=== PATIENT | female | born 1965 ===

== ENCOUNTER 2018-07-18 11:41 | Day surgery (SDC) | payer MEDICAID ==
--- NOTE | 2018-07-18 12:34 | CP.SDSHP ---
Same Day Surgery H & P - History Proposed Procedure: Right submandibular mass FNA - Allergies Allergies: Allergies No Known Allergies Allergy (Verified 08/27/15 12:25) - Physical Exam Mental Status: Alert & Oriented x3 Neuro: WNL Heart: WNL - Impression Impression: 2 cm complex Right submandibualar mass. Plan US guided FNA. Pt. Evaluated Today:Candidate for Anesthesia & Procedure: No Short Stay Discharge - Short Stay Discharge Admitting Diagnosis/Reason for Visit: LOCALIZED SWELLING, MASS AND LUMP, NECK Disposition: HOME/ ROUTINE Referrals: Braxton Edward MD [Primary Care Provider] -
--- NOTE | 2018-07-18 12:34 | PCM.SURG1 ---
Surgeon's Initial Post Op Note - Surgeon's Notes Surgeon: Guero Anguiano MD Accelerator Operator: NONE Type of Anesthesia: Local Pre-Operative Diagnosis: Right submandibualar mass Operative Findings: US showed a complex right submandibular mass. Post-Operative Diagnosis: Right submandibualar mass Operation Performed: US guided FNA Specimen/Specimens Removed: 25 g FNA x 3 passes, 2 cc of yellow fluis aspirated Estimated Blood Loss: EBL {In ML}: 0 Blood Products Given: N/A Drains Used: No Drains Post-Op Condition: Good Date of Surgery/Procedure: 07/18/18 Time of Surgery/Procedure: 12:30
--- NOTE | 2018-07-19 13:54 | US ---
PROCEDURE: Date of procedure: 07/18/2018 Procedure: Ultrasound-guided FNA of right supraclavicular lymph node, CPT 55147 Ultrasound guidance for biopsy, 10485 Medications: 2cc 1% Lidocaine HISTORY: Enlarged right submandibular neck mass. TECHNIQUE: Following informed consent and procedure time-out, limited ultrasound patient's right neck showed a complex mixed solid and cystic submandibular mass. The patient's neck was prepped and draped in the usual sterile fashion. The skin was anesthetized with 1 percent lidocaine. Ultrasound-guided fine needle aspiration was then performed using a 25 gauge needle. A total of 4 passes were made into the lymph node under direct ultrasound guidance. 2 cubic centimeters of yellow fluid aspirated. FNA specimens were obtained and sent for routine pathology. A post biopsy ultrasound showed no hematoma IMPRESSION: Ultrasound-guided FNA of enlarged right submandibular mass.
== END 2018-07-18 14:00 | disposition home or self-care (01) ==
LOC: C.SPRAD 11:41
PROVIDERS: ATTEND Radiology Vascular & Interventional Radiology
DX: R22.1 Localized swelling, mass and lump, neck (principal)